=== PATIENT | female | born 1945 | race Caucasian/White ===

== ENCOUNTER → 2020-05-13 | Outpatient (CLI) | payer MEDICARE, BC ==
--- OUTSIDE RECORDS SUMMARY | 2020-05-13 08:48 | XMS REPORT ---
:1945 Author Organization [facility] Address [facility] [address] [place] [address] Care Team Providers Name Role Phone Luis Heath Attending Clinician Unavailable Allergies, Adverse Reactions, Alerts This patient has no known allergies or adverse reactions. Medications This patient has no known medications. Problems This patient has no known problems. Procedures Procedure Date / Time Performed Performing Clinician Devic e OFFICE/OUTPATIENT VISIT EST 2020-05-03 09:30:00 Results Test Description Test Time Test Comments Text Results Atomic Results Result Comments TSH W/REFLEX TO FT4 2019-08-01 08:06:00 1.42 COMPREHENSIVE METABOLIC PANEL 2019-08-01 08:06:00 Test Item Value Reference Range Comments ALKALINE PHOSPHATASE (test code = 37832745) 69 U/L 37-1 53 CARBON DIOXIDE (test code = 54244231) 28 mmol/L 20-32 BILIRUBIN, TOTAL (test code = 44975319) 0.6 mg/dL 0.2-1.2 ALBUMIN/GLOBULIN RATIO (test code = 02980937) 1.7 (calc) 1. 0-2.5 eGFR (test code = 79406419) 97 mL/min/1.73m2 > OR = 60 GLOBULIN (test code = 46800030) 2.2 g/dL (calc) 1.9-3.7 SODIUM (test code = 13987993) 145 mmol/L 135-146 eGFR NON-AFR. SAMMARINESE (test code = 68523848) 84 mL/min/1.73m2 > OR = 60 ALT (test code = 89907750) 9 U/L 6-29 GLUCOSE (test code = 93035907) 96 mg/dL 65-99 BUN/CREATININE RATIO (test code = 35863977) NOT APPLICABLE (calc ) 6-22 AST (test code = 46807223) 12 U/L 10-35 CHLORIDE (test code = 48121142) 110 mmol/L 98-110 PROTEIN, TOTAL (test code = 11178183) 5.9 g/dL 6.1-8.1 POTASSIUM (test code = 46385971) 3.8 mmol/L 3.5-5.3 ALBUMIN (test code = 82073086) 3.7 g/dL 3.6-5.1 CALCIUM (test code = 16240125) 8.5 mg/dL 8.6-10.4 CREATININE (test code = 29523030) 0.72 mg/dL 0.60-0.93 UREA NITROGEN (BUN) (test code = 93955658) 23 mg/dL 7-25 HEMOGLOBIN A1c WITH [id number] 08:06:00 Test Item Value Reference Range Comments HEMOGLOBIN A1c (test code = 4548-4) 5.7 % of total Hgb <5.7 eAG (mmol/L) (test code = 05653260) 6.5 (calc) eAG (mg/dL) (test code = 68936569) 117 (calc) CBC (H/H, RBC, INDICES, WBC, PLT)2019-08-01 08:06:00 Test Item Value Reference Range Comments MCV (test code = 61566587) 95.4 fL 80.0-100.0 RED BLOOD CELL COUNT (test code = 78862285) 3.88 Million/uL 3.80 -5.10 WHITE BLOOD CELL COUNT (test code = 4.6 Thousand/uL 3.8-10.8 76199988) MCH (test code = 41643910) 31.7 pg 27.0-33.0 RDW (test code = 79814726) 13.1 % 11.0-15.0 MCHC (test code = 39556104) 33.2 g/dL 32.0-36.0 HEMOGLOBIN (test code = 89866140) 12.3 g/dL 11.7-15.5 MPV (test code = 87829948) 10.7 fL 7.5-12.5 HEMATOCRIT (test code = 21100486) 37.0 % 35.0-45.0 PLATELET COUNT (test code = 94908239) 221 Thousand/uL 140-400 LIPID PANEL, [id number] 08:06:00 Test Item Value Reference Range Comments LDL-CHOLESTEROL (test code = 70019571) 76 mg/dL (calc) NON HDL CHOLESTEROL (test code = 53504700) 90 mg/dL (calc) <130 HDL CHOLESTEROL (test code = 87449786) 48 mg/dL > OR = 50 TRIGLYCERIDES (test code = 67501393) 62 mg/dL <150 CHOLESTEROL, TOTAL (test code = 33275792) 138 mg/dL <200 CHOL/HDLC RATIO (test code = 90180087) 2.9 (calc) <5.0 Assessments Condition Name Status Diagnosis Date Treating Clinici an Other specified disorders of nose and nasal Active sinuses Other abnormal glucose Active Polyneuropathy, unspecified Active Encounter for immunization Active Encounters Start End Encounter Admission Attending Care Care Encounter Date/Time Date/Time Type Type Clinicians Facility Department ID 2020-05-03 2020-05-03 Outpatient Ivana, [place] [address] [id number] 09:30:00 09:30:00 Luis Children [id number] s [id number] and [id number] [facility], Social History This patient has no known social history. Vital Signs This patient has no known vital signs.
--- NOTE | 2020-05-13 10:15 | RADIOLOGY REPORT (SQ) ---
EXAM DESCRIPTION: CT FACIAL AREA WITHOUT IMAGES COMPLETED DATE/TIME: 05/13/2020 8:54 am REASON FOR STUDY: (J34.89)OTHER SPECIFIED DISORDERS OF NOSE AND NASAL SINUSES J34.89 OTHER SPECIFIE D DISORDERS OF NOSE AND NASAL SINUSES COMPARISON: None. TECHNIQUE: Noncontrasted images through the facial bones and orbits windowed for bone and soft tissu e. Additional coronal and sagittal reconstructed images reviewed. All images stored on PACS. All CT scanners at this facility use dose modulation, iterative reconstruction, and/or weight based d osing when appropriate to reduce radiation dose to as low as reasonably achievable (ALARA). [facility]: Dose Right [facility]: CareDose [facility]: Dose Right [facility]: Teradose 4D [facility]: [employer] RADIATION DOSE: mGy. LIMITATIONS: None. FINDINGS: FACIAL BONES: No fracture or bone lesion. ORBITS: Intact. No fracture. Symmetric intact globes and retroorbital soft tissues. PARANASAL SINUSES: Clear. No significant mucosal thickening, mass or fluid. No nasal polyps. Maxill rosa sinus outlets are patent. SOFT TISSUES: No mass or edema. INFERIOR BRAIN: Limited view. No acute findings. OTHER: Incidental note is made of scattered left mastoid air cell opacities. IMPRESSION: Scattered left mastoid air cell opacities. Otherwise normal noncontrast maxillofacial C T. TECHNICAL DOCUMENTATION: JOB ID: [id number] Quality ID # [id number]: Final reports with documentation of one or more dose reduction techniques (e.g., Au tomated exposure control, adjustment of the mA and/or kV according to patient size, use of iterative reconstruction technique) 2010 [employer]- All Rights Reserved Reading location - IP/workstation name: [email or web address]
== END ==
LOC: RAD 08:26
PROVIDERS: ATTEND Internal Medicine
DX: J34.89 Other specified disorders of nose and nasal sinuses (principal)
CPT/HCPCS: 70486